=== PATIENT | female | born 1945 | race Caucasian/White ===

== ENCOUNTER 2020-04-12 11:49 | Inpatient (IN) | payer OTHER ==
[~2020-04-12] VITALS: Ht 157.5 cm; Wt 76.7 kg
[~2020-04-12 11:49] MED LIST: CHROMIUM PICO400 MCG; ESTRO SUPPORT200 MCG; MULTIVITAMINS; [UNRECOGNIZED DRUG - OTHER]
[2020-04-12 11:54] VITALS: BP 150/87
[2020-04-12 13:00] LABS: BASOPHILS 0.8 % (0.0-2.0); EOSINOPHILS 2.2 % (0.0-3.0); HEMATOCRIT 22.8 % (37.0-47.0); HEMOGLOBIN 7.4 gm/dL (12.0-15.0); LYMPHOCYTES 27.1 % (24.0-44.0); MCH 23.9 pg (26.0-34.0); MCHC 32.2 g/dL (28.0-37.0); MCV 74.2 fL (80.0-100.0); MONOCYTES 6.7 % (1.0-8.0); PLATELET COUNT 371 thou/uL (150-400); POLYS 63.2 % (36.0-66.0); RBC 3.08 mil/uL (4.20-5.00); WBC 9.5 thou/uL (4.0-11.0)
[2020-04-12 13:11] LABS: CALCIUM 8.6 mg/dL (8.5-10.1); CREATININE 0.9 mg/dL (0.6-1.0); POTASSIUM 3.8 mmol/L (3.5-5.1)
[2020-04-12 13:17] LABS: ALBUMIN 3.4 g/dL (3.4-5.0); TOTAL BILIRUBIN 0.2 mg/dL (0.2-1.0); TOTAL PROTEIN 6.6 g/dL (6.4-8.2)
[2020-04-12 13:21] LABS: ANISOCYTOSIS 2+; HYPOCHROMASIA 1+; MICROCYTES 2+; PLATELET ESTIMATE NORMAL
[2020-04-12 14:01] VITALS: BP 150/60
[2020-04-12] MEDS ORDERED: METFORMIN HCL500 MG PO ×2 (14:38→14:39)
[2020-04-12] MEDS ORDERED: METFORMIN HCL500 M3 PO (14:38)
[2020-04-12] MEDS ORDERED: GLIMEPIRIDE4 MG PO (14:39)
[2020-04-12] MEDS ORDERED: PEPCID20 MG PO (14:40)
[2020-04-12] MEDS ORDERED: CALCIUM500 MG PO (14:41)
[2020-04-12] MEDS ORDERED: ASA81BEC PO (14:41)
[2020-04-12] MEDS ORDERED: B COMPLEX1 EACH PO (14:41)
[2020-04-12 16:34] VITALS: BP 125/53; BP 138/38; BP 143/49
--- NOTE | 2020-04-12 17:47 | NUR ---
HANDOFF TOOL FAXED AT THIS TIME
[2020-04-12 18:21] VITALS: BP 138/38
--- NOTE | 2020-04-12 19:31 | NUR ---
PATIENT CAME TO THYE UNIT FROM ER AROUND 1830. ALERT X ORIENTED X 4. MEDSURG-TELE PATIENT. IV RT AC AND LEFT FA. DIABETIC, PT REFUSES INSULIN, JUST WANT TO TAKE METFORMIN WHICH SHE USUALLY TAKES AT HOME. NO PAIN NOTIFIED. FEELS TIRED AND WEAK. SHIFT REPORT GIVEN TO
[2020-04-12 19:32] VITALS: BP 142/60
[2020-04-13 03:39] VITALS: BP 116/48
[2020-04-13 05:40] LABS: HEMATOCRIT 26.6 % (37.0-47.0); HEMOGLOBIN 8.3 gm/dL (12.0-15.0); MCH 24.3 pg (26.0-34.0); MCHC 31.3 g/dL (28.0-37.0); MCV 77.6 fL (80.0-100.0); RBC 3.42 mil/uL (4.20-5.00); RDW 17.8 % (10.5-14.5); WBC 7.3 thou/uL (4.0-11.0)
[2020-04-13 07:09] VITALS: BP 121/47
--- NOTE | 2020-04-13 07:56 | NUR ---
progress pt a/o x 4 lungs clear skin c/d/i up with sba denies pain voiding qs. sleep most of noc without difficulty. tele intact reading sr pt hopes to dc home today.
--- NOTE | 2020-04-13 08:06 | NUR ---
progress pt a/o x 4 up with walker sba adheres to non weight bearing best that her can could use therapy to help with balance and protecting that leg. iv abt's given as ordered. iv morphine and hydrocodone alternated for pain control leg wrapped with saul wrap reains c/d/i.
[2020-04-13 10:35] VITALS: BP 122/44
[2020-04-13 11:06] VITALS: BP 122/44
--- NOTE | 2020-04-13 12:19 | NUR ---
ASSUMED CARE AT 0700. PT IS ALERT AND ORIENTED. NO CONCERNS, WANTS TO GO HOME. VSSA/RA. ON TELE NSR. TOLERATING DIET, BLOOD SUGARS MONITORED. REFUSES INSULIN. PIV x2 WITHOUT ISSUES. SHE IS INDEPENDENT IN THE ROOM. CALL LIGHT IN REACH. PT DC TODAY. ORDERS RECIEVED. PT VERBALIZES UNDERSTANDING OF DC PAPERWORK AND APPROP FOLLOW UP. PIV x2 REMOVED WITHOUT ISSUES. SIG OTHER AT BS. ANXIOUS TO LEAVE
== END 2020-04-13 14:13 | disposition home or self-care (01) | DRG 812 ==
LOC: ER 11:49 → EROBS 13:58 → 4W 18:35
PROVIDERS: Physician Assistant; ADMIT Internal Medicine; ATTEND Internal Medicine
PROC: 30233N1 Transfusion of Nonautologous Red Blood Cells into Peripheral Vein, Percutaneous Approach (ICD-10-PCS; principal; 2020-04-12)
DX: D64.9 Anemia, unspecified (principal); K22.10 Ulcer of esophagus without bleeding; E11.9 Type 2 diabetes mellitus without complications; I10 Essential (primary) hypertension; K21.9 Gastro-esophageal reflux disease without esophagitis; Z90.49 Acquired absence of other specified parts of digestive tract; Z90.710 Acquired absence of both cervix and uterus; Z88.6 Allergy status to analgesic agent; Z88.1 Allergy status to other antibiotic agents; Z87.891 Personal history of nicotine dependence; Z79.82 Long term (current) use of aspirin; Z79.899 Other long term (current) drug therapy
CPT/HCPCS: 10045